=== PATIENT | male | born 1995 | race Caucasian/White ===

== ENCOUNTER 2016-12-12 22:13 | Emergency (ER) | payer BC, OTHER ==
[~2016-12-12] VITALS: Ht 185.4 cm; Wt 94.0 kg
[2016-12-12 22:16] VITALS: TEMP 36.6; Ht 185.4 cm; Wt 94.0 kg
[2016-12-12] MEDS ORDERED: SODIUM CHLORIDE 0.9% 1000ML 2,000 ML IV STA (22:21)
[2016-12-12] MEDS ORDERED: DiphenhydrAMINE HCL 50 MG/ML VIAL IV STA (22:21)
[2016-12-12] MEDS ORDERED: LORAZEPAM 2 MG/ML 1 ML VIAL IV STA (22:21)
[2016-12-12] MEDS ORDERED: METOCLOPRAMIDE HCL INJ 5 MG/ML 2 ML VIAL IV STA (22:21)
[2016-12-12] MEDS ORDERED: DICYCLOMINE HCL 10 MG/ML 2 ML AMP IM ONE (22:30)
[2016-12-12 23:12] LABS: BASO % 0.2 %; BASO ABS # 0.03 K/uL (0-0.2); COMPLETE YES; EOS % 0.2 %; HEMATOCRIT 52.5 % (42-52); IG% 0.3 %; LYMPH % 4.3 %; LYMPH ABS # 0.67 K/uL (1.2-3.4); MEAN CELL VOLUME 84.5 fL (80-100); MEAN CORPUSCULAR HEMOGLOBIN 29.1 pg (25-34); MEAN CORPUSCULAR HGB CONC 34.5 g/dl (32-36); MEAN PLATELET VOLUME 10.6 fL (7.4-10.4); MONO % 3.5 %; NEUT % 91.5 %; PLATELET COUNT 189 K/uL (130-400); RED BLOOD COUNT 6.21 M/uL (4.7-6.1); WHITE BLOOD COUNT 15.48 K/uL (4.8-10.8)
[2016-12-12 23:29] LABS: BUN/CREATININE RATIO 17.8 (10-20); CALCIUM 10.1 mg/dl (8.5-10.1); CREATININE 1.3 mg/dl (0.60-1.40); POTASSIUM 4.1 mmol/L (3.5-5.1)
--- NOTE | 2016-12-12 23:37 | EMERGENCY ROOM VISIT NOTE ---
History First contact with patient: 22:19 Chief Complaint: FLU LIKE SX Stated Complaint: VOMITING, DIARRHEA, NAUSEA, SOB, DOUBLE VISION History of Present Illness The patient is a 21 year old male who presents to the Emergency Room with complaints of nausea, vomiting, diarrhea and feeling anxious for the past several hours. No recent antibiotics. No well water. Patient denies chest pain, dyspnea, fever, chills, black or blood in the vomit or stool, headache, neck stiffness. Patient cannot keep fluids down. Review of Systems See HPI for pertinent positives & negatives. A total of 10 systems reviewed and were otherwise negative. Past Medical/Surgical History None Social History Smoking Status: Never Smoker Drug Use: marijuana Occupation Status: employed Current/Historical Medications No Active Prescriptions or Reported Meds Allergies Coded Allergies: No Known Allergies (Unverified , 12/12/16) Physical Exam Vital Signs Date Time Temp Pulse Resp B/P Pulse Ox O2 Delivery O2 Flow Rate FiO2 12/12/16 23:29 97 20 102/60 95 Room Air 12/12/16 22:16 36.6 94 18 115/57 99 Room Air Physical Exam VITALS: Vitals are noted on the nurse's note and reviewed by myself. Vital signs stable. GENERAL: White male actively vomiting, in no acute distress, nondiaphoretic, well-developed well-nourished. SKIN: The skin was without rashes, erythema, edema, or bruising. There is no tenting of the skin. Capillary reflex less than 2 seconds. HEAD: Normocephalic atraumatic. EARS: External auditory canals clear, tympanic membranes pearly chatman without erythema or effusion bilaterally. EYES: Pupils equal round and reactive to light and accommodation. Conjunctivae without injection, sclerae without icterus. Extraocular movements intact. NOSE: Patent, turbinates without inflammation or discharge. MOUTH: Mucous membranes mildly dry. Pharynx without erythema or exudate. Uvula midline. Airway patent. Tongue does not deviate. NECK: Supple without nuchal rigidity. No lymphadenopathy. No thyromegaly. Cervical spine is nontender. No JVD. HEART: Regular rate and rhythm without murmurs gallops or rubs. LUNGS: Clear to auscultation bilaterally without wheezes, rales or rhonchi. No dullness to percussion. No retractions or accessory muscle use. ABDOMEN: Positive bowel sounds x 4. Normal tympanic percussion. Soft, nontender, without masses or organomegaly. Bauer sign negative. No guarding or rebound tenderness. MUSCULOSKELETAL: No muscle atrophy, erythema, or edema noted. NEURO: Patient was alert and oriented to person place and time. Normal sensation to light and sharp touch. No focal neurological deficits. Medical Decision & Procedures Laboratory Results 12/12/16 23:00 Red Blood Count 6.21, Mean Corpuscular Volume 84.5, Mean Corpuscular Hemoglobin 29.1, Mean Corpuscular Hemoglobin Concent 34.5, Mean Platelet Volume 10.6, Neutrophils (%) (Auto) 91.5, Lymphocytes (%) (Auto) 4.3, Monocytes (%) (Auto) 3.5, Eosinophils (%) (Auto) 0.2, Basophils (%) (Auto) 0.2, Neutrophils # (Auto) 14.17, Lymphocytes # (Auto) 0.67, Monocytes # (Auto) 0.54, Eosinophils # (Auto) 0.03, Basophils # (Auto) 0.03 12/12/16 23:00 Test 12/12/16 23:00 White Blood Count 15.48 K/uL (4.8-10.8) Red Blood Count 6.21 M/uL (4.7-6.1) Hemoglobin 18.1 g/dL (14.0-18.0) Hematocrit 52.5 % (42-52) Mean Corpuscular Volume 84.5 fL (80-100) Mean Corpuscular Hemoglobin 29.1 pg (25-34) Mean Corpuscular Hemoglobin Concent 34.5 g/dl (32-36) Platelet Count 189 K/uL (130-400) Mean Platelet Volume 10.6 fL (7.4-10.4) Neutrophils (%) (Auto) 91.5 % Lymphocytes (%) (Auto) 4.3 % Monocytes (%) (Auto) 3.5 % Eosinophils (%) (Auto) 0.2 % Basophils (%) (Auto) 0.2 % Neutrophils # (Auto) 14.17 K/uL (1.4-6.5) Lymphocytes # (Auto) 0.67 K/uL (1.2-3.4) Monocytes # (Auto) 0.54 K/uL (0.11-0.59) Eosinophils # (Auto) 0.03 K/uL (0-0.5) Basophils # (Auto) 0.03 K/uL (0-0.2) RDW Standard Deviation 40.4 fL (36.4-46.3) RDW Coefficient of Variation 13.2 % (11.5-14.5) Immature Granulocyte % (Auto) 0.3 % Immature Granulocyte # (Auto) 0.04 K/uL (0.00-0.02) Anion Gap 13.0 mmol/L (3-11) Est Creatinine Clear Calc Drug Dose 102.4 ml/min Estimated GFR () 91.0 Estimated GFR (Non- 78.5 BUN/Creatinine Ratio 17.8 (10-20) Calcium Level 10.1 mg/dl (8.5-10.1) Medications Administered Medications (Trade) Dose Ordered Sig/Ora Route Start Time Stop Time Status Last Admin Dose Admin Sodium Chloride (Nss 1000ml) 2,000 ml @ 999 mls/hr Q2H1M STAT IV 12/12/16 22:21 12/13/16 00:21 12/12/16 23:20 999 MLS/HR Metoclopramide HCl (Reglan Inj) 10 mg NOW STAT IV 12/12/16 22:21 12/12/16 22:23 DC 12/12/16 23:20 10 MG Diphenhydramine HCl (Benadryl Inj) 12.5 mg NOW STAT IV 12/12/16 22:21 12/12/16 22:23 DC 12/12/16 23:20 12.5 MG Dicyclomine HCl (Bentyl Inj) 20 mg NOW ONCE IM 12/12/16 22:30 12/12/16 22:31 DC 12/12/16 23:21 20 MG Lorazepam (Ativan Inj) 1 mg NOW STAT IV 12/12/16 22:21 12/12/16 22:23 DC 12/12/16 23:20 1 MG ED Course Prior records/ancillary studies reviewed. Triage Nursing notes reviewed. Additional history obtained from the family. The patient's history was concerning for nausea, vomiting, diarrhea, and abdominal pain. Differential diagnosis: Etiologies such as gastroenteritis, food borne illness, infections, appendicitis , diverticulitis, inflammatory bowel disease, obstruction, GI bleed, biliary pathology, as well as others were entertained. Physical examination findings: As above. Abdominal examination revealed no tenderness. Vital signs reviewed and revealed table. ER treatment provided: IV hydration 1 L NSS. Reglan, Bentyl, Benadryl, Ativan On reassessment the patient felt better. Patient was tolerating p.o. intake. Diagnostics interpretation by me: The labs revealed leukocytosis. Most likely marginalization from vomiting. Mild elevation BUN, most likely from dehydration This appears to be consistent with vomiting and diarrhea. Patient felt much better after being medicated as above. He did not have acute abdomen on exam. He was advised to rest, stay well-hydrated, do clear liquid diet today and the progress as tolerated to bland diet tomorrow. He was advised to follow-up with family medicine in a few days or here in the ER sooner for severe pain, fevers, vomiting, worsening signs or symptoms or as needed. By the evaluation outlined above emergent etiologies such as appendicitis, diverticulitis, obstruction, cardiac sources, mesenteric ischemia, aortic pathology, inflammatory bowel disease, renal colic, PUD, biliary pathology, UTI, as well as others were deemed relatively unlikely. The pt informed about the findings as listed above. All questions were answered and pleased with the treatment. Return instructions were outlined and the patient was discharged in stable condition. Outpatient prescription management: zofran Referral: The patient was referred to their primary care physician for follow-up in 2 to 3 days for a recheck of the current condition. Medical Decision as above Impression Primary Impression: Nausea vomiting and diarrhea Departure Information Dispostion Home / Self-Care Condition GOOD Prescriptions No Active Prescriptions or Reported Meds Referrals No Doctor, Assigned (PCP) Patient Instructions My [facility] Additional Instructions DO NOT drive, drink alcohol, operate machinery, or perform dangerous activities today. You were given medications in the ER that can affect your ability to safely function or operate a vehicle. Zofran(odansetron) tablets 4mg: Take one and allow it to dissolve in your mouth every four to six hours as needed for nausea or vomiting. Acetaminophen(Tylenol) may be used for fever or pain. Use 1000mg every six hours as needed. Avoid using more than 3000mg in a 24 hour period. Rest and drink plenty of fluids as tolerated. Slow sips of water or sports drinks are recommended instead of large amounts all at once. Continue current medications. Once your stomach is settled start with a clear liquid diet (jello soup broth, etc.) and then advance as tolerated. You should avoid full, heavy meals for about 24 hrs from the time your symptoms resolved. Return to the ER for persistent vomiting, fevers, abdominal pain, chest pains, difficulty breathing, black or bloody stools, worsening of your condition, or as needed. Follow up with your primary physician in 2-3 days for a recheck of your current condition.
[2016-12-12] MEDS ORDERED: ONDANSETRON HOME PACK 4MG OD TAB PO ONE (23:45)
[2016-12-13 00:12] VITALS: BP 97/61; PULSE 99; O2SAT 99
== END 2016-12-13 00:14 | disposition home or self-care (01) ==
LOC: C.EDB 22:14 → C.EDA 12-13 00:14
DX: R11.2 Nausea with vomiting, unspecified (principal); R19.7 Diarrhea, unspecified; F12.90 Cannabis use, unspecified, uncomplicated

== ENCOUNTER 2017-12-25 13:08 | Emergency (ER) | payer BC, OTHER ==
[~2017-12-25] VITALS: Ht 185.4 cm; Wt 87.0 kg
[2017-12-25 13:10] VITALS: TEMP 37.1; Ht 185.4 cm; Wt 87.0 kg
[2017-12-25] MEDS ORDERED: OXYCODONE HCL IR 5 MG TAB (IMMEDIATE RELEASE) PO STA (13:26)
--- NOTE | 2017-12-25 14:12 | DIAGNOSTIC IMAGING REPORT ---
L TIBIA/FIBULA 2 VIEWS ROUTINE CLINICAL HISTORY: 22 years-old Male presenting with L calf pain s/p metal fragment/trauma. TECHNIQUE: Frontal and lateral views of the left lower leg were obtained. COMPARISON: None. FINDINGS: Radiopaque foreign body in the posterior medial soft tissues of the left lower leg at the level of the mid tibial diaphysis. Extensive soft tissue swelling may be present. No acute fracture or malalignment. Ankle mortise and knee joints grossly congruent. IMPRESSION: 1. Radiopaque foreign body in the posterior medial soft tissues of the mid left lower leg. 2. No acute osseous injury. Electronically signed by: Nate Preciado M.D. 12/25/2017 2:11 PM Dictated Date/Time: 12/25/2017 2:10 PM
[2017-12-25] MEDS ORDERED: CEPHALEXIN MONOHYDRATE 250 MG CAP PO STA (14:31)
[2017-12-25] MEDS ORDERED: CEPH500C PO (14:32)
[2017-12-25] MEDS ORDERED: OXYC1TAB3 PO (14:32)
--- NOTE | 2017-12-25 14:34 | EMERGENCY ROOM VISIT NOTE ---
ED Visit Note First contact with patient: 13:21 Chief Complaint: "Leg, lots of bleeding". History of Present Illness: This patient is a 22-year-old male who presents to the Emergency Department via private vehicle for evaluation of their left anterior brooks laceration. Patient sustained the laceration while working at [employer] , when he struck a piece of metal and it shattered causing a piece of shrapnel to fly and strike his leg, through his pants and into the leg. They report a moderate amount of bleeding initially. They deny any numbness or tingling into the distal extremity. \\ Patient rates his current discomfort as a 5/10. Patient 's Tetanus status is currently up-to-date. Medications: As noted below Allergies: none PMH: no pertinent SHx: Pt. is employed and lives locally. ROS: All pertinent positive and negative review of systems are appropriately documented in the History of Present Illness. Physical Exam: VITAL SIGNS - Vital signs and nursing notes were reviewed. Stable. GENERAL -22-year-old male appearing his stated age who is in no acute distress. Communicates well with provider and answers questions appropriately. SKIN - There is a 0.5 cm long laceration noted anterior aspect of his left anterior medial brooks. No foreign body appreciated to palpation. No bleeding. MUSCULOSKELETAL -there is tenderness of the patient's left calf. There is intact pulses. Range of motion intact. No palpable foreign body. NEUROLOGIC - Spinothalamic tract was found to be intact with ability to discriminate sharp versus dull sensation. No sensory defects of the dorsal column were appreciated utilizing light touch for evaluation. VASCULAR - Capillary refill was brisk. L TIBIA/FIBULA 2 VIEWS ROUTINE CLINICAL HISTORY: 22 years-old Male presenting with L calf pain s/p metal fragment/trauma. TECHNIQUE: Frontal and lateral views of the left lower leg were obtained. COMPARISON: None. FINDINGS: Radiopaque foreign body in the posterior medial soft tissues of the left lower leg at the level of the mid tibial diaphysis. Extensive soft tissue swelling may be present. No acute fracture or malalignment. Ankle mortise and knee joints grossly congruent. IMPRESSION: 1. Radiopaque foreign body in the posterior medial soft tissues of the mid left lower leg. 2. No acute osseous injury. Electronically signed by: Nate Preciado M.D. 12/25/2017 2:11 PM ED Course: Patient was seen and evaluated by myself. He presents to us today with suspected metallic foreign body in his left leg. X-ray was obtained. Results as above. Foreign body appears to be deep. I cannot palpated on exam. He was given OxyIR for pain. He was given Keflex for wound prophylaxis. I discussed the case with the attending physician, and subsequently the on-call orthopedic surgeon, Dr. Elias. We discussed how the patient should have antibiotics, tetanus updated if it does not, a dressing and then follow-up in his office tomorrow. I believe this is reasonable. The wound was copiously irrigated with normal saline and Betadine. The wound was cleansed and dressed with a Bacitracin dressing. Pt. notes tetanus UTD. Short course of Oxy IR for pain and Keflex for wound prophylaxis. Patient educated on worrisome symptoms for return visit to the Emergency Department. Patient discharged to home in good condition. No red flags in PDMP. In the evaluation and treatment of this patient the following differential diagnoses were obtained: Laceration, foreign body, among others. Current/Historical Medications Scheduled Cephalexin Monohydrate (Keflex), 500 MG PO QID Scheduled PRN Oxycodone Ir (Roxicodone Ir), 1-2 TAB PO Q6 PRN for Pain Allergies Coded Allergies: No Known Allergies (Unverified , 12/12/16) Vital Signs Date Time Temp Pulse Resp B/P (MAP) Pulse Ox O2 Delivery O2 Flow Rate FiO2 12/25/17 14:52 104 18 123/70 96 12/25/17 13:10 37.1 87 18 127/73 93 Room Air Medications Administered Medications (Trade) Dose Ordered Sig/Ora Route Start Time Stop Time Status Last Admin Dose Admin Oxycodone HCl (Roxicodone Immediate Rel Tab) 5 mg NOW STAT PO 12/25/17 13:26 12/25/17 13:27 DC 12/25/17 13:43 5 MG Cephalexin Monohydrate (Keflex Cap) 500 mg NOW STAT PO 12/25/17 14:31 12/25/17 14:32 DC 12/25/17 14:48 500 MG Departure Information Impression Primary Impression: Leg pain, left Additional Impression: metal foreign body in leg Dispostion Home / Self-Care Condition GOOD Prescriptions Oxycodone Ir (Roxicodone Ir) 5 Mg Tab 1-2 TAB PO Q6 Y for Pain, #15 TAB For Initial Treatment Prov: Luis Morse PA-C 12/25/17 Cephalexin Monohydrate (Keflex) 500 Mg Cap 500 MG PO QID for 7 Days, #28 CAP Prov: Luis Morse PA-C 12/25/17 Referrals No Doctor, Assigned (PCP) Tyron Elias, DO Patient Instructions My [facility] Additional Instructions Discharge Instructions: Dr. Elias would like to see you tomorrow in his office. Please call [facility] to make appt. Oxy IR is a controlled medication. No driving with this. This is only for severe pain and for a short period of time Proper wound care is essential for adequate wound healing and infection prevention. You can shower and clean the wound with soap and water. Do not scour over the wound, pat dry with a towel. Do not submerse the wound (i.e. bathe or dish wash) Look for signs of infection of the wound including: increased pain, swelling, foul discharge, streaking, or increased temperature. If any of these are noticed you should return to the Emergency Department for further assessment and treatment. As with any laceration you may have received nerve damage to the surrounding tissues. This damage may or may not be permanent. You should keep the area covered with sunscreen for the first 6 months to 1 year when at risk for exposure to help minimize scarring. You can also use scar reducing creams or Vitamin E oil to help minimize scarring. For pain control, you can use the following [id number] medicines - Regular strength (325mg/tab) Tylenol (acetaminophen) 2 tabs every 4-6 hours as needed. Do not exceed 12 tablets in a 24 hour period. Avoid taking more than 3 grams (3000 mg) of Tylenol per day. This includes any other sources of acetaminophen you may take on a regular basis. - Regular strength (200 mg/tab) Advil (ibuprofen) 1-2 tabs every 4-6 hours as needed. Do not exceed a dose of 3200 mg per day. Return to the emergency department if your symptoms worsen despite treatment course outlined above. Problem Qualifiers
[2017-12-25 14:52] VITALS: BP 123/70; PULSE 104; O2SAT 96
== END 2017-12-25 14:54 | disposition home or self-care (01) ==
LOC: C.EDB 13:09 → C.EDD 14:54
DX: S81.822A Laceration with foreign body, left lower leg, initial encounter (principal); W22.8XXA Striking against or struck by other objects, initial encounter

== ENCOUNTER 2018-01-23 11:04 | Emergency (ER) | payer OTHER ==
[~2018-01-23] VITALS: Ht 185.4 cm; Wt 86.4 kg
[~2018-01-23 11:04] MED LIST: OXYC1TAB3 PO
[2018-01-23 11:07] VITALS: TEMP 36.7; Ht 185.4 cm; Wt 86.4 kg
[2018-01-23] MEDS ORDERED: LISD50CA4 PO (11:15)
[2018-01-23] MEDS ORDERED: AMPH10TA2 PO (11:15)
[2018-01-23] MEDS ORDERED: XYLOCAINE 1%/SOD BICARB 20 ML VIAL INFIL ONE (11:17)
--- NOTE | 2018-01-23 11:38 | DIAGNOSTIC IMAGING REPORT ---
RIGHT FOURTH FINGER 3 VIEWS CLINICAL HISTORY: Laceration. FINDINGS: 3 views of the right fourth finger are obtained. No prior studies are available for comparison at the time of dictation. The skeletal structures are well mineralized. No fracture is seen. The fourth metacarpophalangeal and interphalangeal joints are well-maintained. A small cutaneous defect at the tip of the finger suggests laceration. No radiodense foreign body is seen. IMPRESSION: 1. No acute osseous abnormality is identified in the right fourth finger. 2. Soft tissue injury is suggested the tip of the fourth digit. Electronically signed by: Ric Brink M.D. 01/23/2018 11:37 AM Dictated Date/Time: 01/23/2018 11:36 AM
[2018-01-23] MEDS ORDERED: OXYC1TAB3 PO (12:18)
[2018-01-23 12:27] VITALS: BP 138/79; PULSE 87; O2SAT 100
--- NOTE | 2018-01-23 15:49 | EMERGENCY ROOM VISIT NOTE ---
History First contact with patient: 11:13 Chief Complaint: LACERATION/CUT (SUT/DERMABOND) Stated Complaint: CUT ON TOP OF FINGER Nursing Triage Summary: right 4th digit laceration from clamped pliers History of Present Illness The patient is a 22 year old male who presents to the Emergency Room with complaints of a laceration to his right fourth fingertip. The patient reports that he got his finger caught in a pair of wheel weight pliers. The patient rates his discomfort a 6 out of 10. Tetanus immunization is up-to-date. The patient is right-hand dominant. Review of Systems 10 system review was performed and was negative except for pertinent positives and negatives as indicated in history of present illness Past Medical/Surgical History Medical Problems: (1) Anxiety Disorder, Unspecified (2) Cannabis Use, Unspecified, Uncomplicated Surgical Problems: (1) No history of previous surgery Family History FH: cancer FH: diabetes mellitus FH: heart disease FH: hypertension Social History Smoking Status: Never Smoker Alcohol Use: none Drug Use: marijuana Housing Status: lives alone Occupation Status: employed Current/Historical Medications Scheduled Amphetamine-Dextroamphetamine 10MG (Adderall 10MG), 10 MG PO DAILY Lisdexamfetamine Dimesylate (Vyvanse), 50 MG PO DAILY Scheduled PRN Oxycodone Ir (Roxicodone Ir), 1-2 TAB PO Q4H PRN for Pain Physical Exam Vital Signs Date Time Temp Pulse Resp B/P (MAP) Pulse Ox O2 Delivery O2 Flow Rate FiO2 01/23/18 12:27 87 18 138/79 100 01/23/18 11:07 36.7 74 20 129/88 Room Air Physical Exam CONSTITUTIONAL: Healthy and well nourished. Alert and oriented X 3 with positive affect. HEENT: Normocephalic, atraumatic. Pupils equal, round and reactive. NECK: Full active range of motion without discomfort. MUSCULOSKELETAL: Examination of the right fourth fingertip shows a 1 cm laceration that is just distal to the edge of the nail plate. There is an area of ecchymosis on the digital pad. Nail plate is not subluxed or lacerated. Capillary refill is less than 2 seconds. INTEGUMENTARY: No rash or other significant dermatologic conditions noted. NEUROLOGIC: Right fourth fingertip is sensory intact. Medical Decision & Procedures ER Provider Diagnostic Interpretation: My interpretation of right fourth finger x-rays does not show any obvious tuft fractures or DIP dislocation. Radiologist report is as follows: RIGHT FOURTH FINGER 3 VIEWS CLINICAL HISTORY: Laceration. FINDINGS: 3 views of the right fourth finger are obtained. No prior studies are available for comparison at the time of dictation. The skeletal structures are well mineralized. No fracture is seen. The fourth metacarpophalangeal and interphalangeal joints are well-maintained. A small cutaneous defect at the tip of the finger suggests laceration. No radiodense foreign body is seen. IMPRESSION: 1. No acute osseous abnormality is identified in the right fourth finger. 2. Soft tissue injury is suggested the tip of the fourth digit. Procedure Laceration repair was performed by our physician clinical data assistant student under my direct supervision. Using buffered 1% lidocaine without epinephrine, good digital block anesthesia was administered. The tissue was then peripherally cleansed with iodine, then irrigated with normal saline. Exploration of the wound does not show any underlying foreign debris. The wound was then approximated using 5-0 nylon simple interrupted sutures. A bacitracin dressing was applied. The patient tolerated the procedure well. ED Course Patient history and physical exam were performed. Nurse's notes were reviewed. Laceration repair was performed under digital block anesthesia. The patient was provided additional verbal and written wound care instructions. Ice and elevation for swelling. Ibuprofen or Tylenol as needed for pain. Patient was provided a short prescription for OxyIR as needed for worse pain. Suture removal in 12-14 days, or seek reevaluation sooner for any signs of wound infection. The patient was happy with plan of care, voiced understanding of all discharge instructions, and denied any pain at the conclusion of treatment. Medical Decision Medication Reconcilliation Current Medication List: was personally reviewed by me Blood Pressure Screening Patient's blood pressure: Normal blood pressure Impression Primary Impression: Laceration of ring finger without foreign body without damage ... Additional Impression: Work related injury Departure Information Dispostion Home / Self-Care Prescriptions Oxycodone Ir (Roxicodone Ir) 5 Mg Tab 1-2 TAB PO Q4H Y for Pain, #15 TAB For Initial Treatment Prov: Jake Barakat PA 01/23/18 Forms HOME CARE DOCUMENTATION FORM, IMPORTANT VISIT INFORMATION Patient Instructions My [facility] Additional Instructions Keep wound clean and dry. Do not allow any crusting or dried blood to accumulate on sutures. If this occurs, use a 1:1 solution of hydrogen peroxide/ water on a Q-tip to clean the wound. Use an antibiotic ointment for 3-4 days, then let wound dry. Suture removal in 12-14 days. Return sooner for any signs of infection (increasing redness, swelling, drainage). Ice and elevate for swelling and pain. Ibuprofen 600 mg and/or Tylenol 1000 mg every 6 hrs if needed for additional pain relief. OxyIR if needed for worse pain. Do not drink alcohol or drive while taking OxyIR. Problem Qualifiers Primary Impression: Laceration of ring finger without foreign body without damage ... Encounter type: initial encounter Laterality: right Qualified Codes: S61.214A - Laceration without foreign body of right ring finger without damage to nail, initial encounter
== END 2018-01-23 12:27 | disposition home or self-care (01) ==
LOC: C.EDB 11:06 → C.EDD 12:27
DX: S61.214A Laceration without foreign body of right ring finger without damage to nail, initial encounter (principal); W27.8XXA Contact with other nonpowered hand tool, initial encounter; Y92.9 Unspecified place or not applicable; F41.9 Anxiety disorder, unspecified; F12.90 Cannabis use, unspecified, uncomplicated; Z80.9 Family history of malignant neoplasm, unspecified; Z83.3 Family history of diabetes mellitus; Z82.49 Family history of ischemic heart disease and other diseases of the circulatory system; Z79.899 Other long term (current) drug therapy